=== PATIENT | male | born 1965 | race African-American/Black ===

== ENCOUNTER 2017-02-01 19:15 | Emergency (ER) | payer BC, OTHER ==
[~2017-02-01] VITALS: Ht 185.4 cm; Wt 85.0 kg
[2017-02-01] MEDS ORDERED: BENI40TA3 PO (19:32)
[2017-02-01] MEDS ORDERED: ULTR50TA5 PO (19:32)
[2017-02-01] MEDS ORDERED: BENI40TA7 PO (19:32)
[2017-02-01 19:33] VITALS: BP 115/85; PULSE 107; RESP 20; TEMP 98.1; O2SAT 98
--- NOTE | 2017-02-01 19:44 | PD ---
HPI Chief Complaint: Psychiatric Symptoms Time Seen by Provider: 19:40 Travel History International Travel<30 days: No Contact w/Intl Traveler<30days: No Traveled to known affect area: No History of Present Illness HPI 51-year-old male presents to the emergency Department under a [place] Act by local police. The ballard act states that the patient got upset about a payment plan with magdalena Borre[employer], when he stated that he was going to kill himself. The [employer] called police who contacted the patient. According to the [place], the patient did state this. The patient states that he was arranging a payment plan and the customer service representative teacher asked if he was going to make the pain a. He states that he stated "not if I kill myself". He states he was joking around and did not mean it. 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 He states he has never tried to hurt himself before. He has no depression or anxiety. PFSH Past Medical History Cardiovascular Problems: Yes (htn) Social History Alcohol Use: No Tobacco Use: No Substance Use: No Allergies-Medications (Allergen,Severity, Reaction): Coded Allergies: No Known Allergies (Unverified , 02/01/17) Reported Meds & Prescriptions Reported Meds & Active Scripts Active Reported Ultram (Tramadol HCl) 50 Mg Tab 50 Mg PO Q8H PRN Benicar Hct (Olmesartan-Hydrochlorothiazide) 40-25 mg Tab 1 Tab PO DAILY Review of Systems Except as stated in HPI: all other systems reviewed are Neg Physical Exam Narrative GENERAL: Well-nourished, well-developed male patient, afebrile SKIN: Focused skin assessment warm/dry. HEAD: Normocephalic. Atraumatic. EYES: No scleral icterus. No injection or drainage. NECK: Supple, trachea midline. No JVD or lymphadenopathy. CARDIOVASCULAR: Regular rate and rhythm without murmurs, gallops, or rubs. RESPIRATORY: Breath sounds equal bilaterally. No accessory muscle use. Lungs sounds are clear to auscultation GASTROINTESTINAL: Abdomen soft, non-tender, nondistended. MUSCULOSKELETAL: No cyanosis, or edema. PSYCHIATRIC: No delusional thought processes. No hallucinations. Data Data Last Documented VS Vital Signs Date Time Temp Pulse Resp B/P Pulse Ox O2 Delivery O2 Flow Rate FiO2 6/30/17 19:33 98.1 107 20 115/85 98 Orders Complete Blood Count With Diff (02/01/17 19:40) Comprehensive Metabolic Panel (02/01/17 19:40) Psych Screen (02/01/17 19:40) Drug Screen, Random Urine (02/01/17 19:40) Alcohol (Ethanol) (02/01/17 19:40) Labs Laboratory Tests Test 02/01/17 19:49 White Blood Count 7.9 TH/MM3 Red Blood Count 4.62 MIL/MM3 Hemoglobin 15.0 GM/DL Hematocrit 43.6 % Mean Corpuscular Volume 94.3 FL Mean Corpuscular Hemoglobin 32.4 PG Mean Corpuscular Hemoglobin 34.3 % Concent Red Cell Distribution Width 13.8 % Platelet Count 310 TH/MM3 Mean Platelet Volume 8.0 FL Neutrophils (%) (Auto) 57.2 % Lymphocytes (%) (Auto) 25.2 % Monocytes (%) (Auto) 15.2 % Eosinophils (%) (Auto) 2.0 % Basophils (%) (Auto) 0.4 % Neutrophils # (Auto) 4.5 TH/MM3 Lymphocytes # (Auto) 2.0 TH/MM3 Monocytes # (Auto) 1.2 TH/MM3 Eosinophils # (Auto) 0.2 TH/MM3 Basophils # (Auto) 0.0 TH/MM3 CBC Comment DIFF FINAL Differential Comment Sodium Level 133 MEQ/L Potassium Level 3.5 MEQ/L Chloride Level 98 MEQ/L Carbon Dioxide Level 29.1 MEQ/L Anion Gap 6 MEQ/L Blood Urea Nitrogen 5 MG/DL Creatinine 1.36 MG/DL Estimat Glomerular Filtration 68 ML/MIN Rate Random Glucose 99 MG/DL Calcium Level 9.1 MG/DL Total Bilirubin 0.5 MG/DL Aspartate Amino Transf 62 U/L (AST/SGOT) Alanine Aminotransferase 46 U/L (ALT/SGPT) Alkaline Phosphatase 128 U/L Total Protein 8.2 GM/DL Albumin 3.3 GM/DL Urine Opiates Screen NEG Urine Barbiturates Screen NEG Urine Amphetamines Screen NEG Urine Benzodiazepines Screen NEG Urine Cocaine Screen NEG Urine Cannabinoids Screen NEG Ethyl Alcohol Level 6 MG/DL MDM Medical Decision Making Medical Screen Exam Complete: Yes Emergency Medical Condition: Yes Medical Record Reviewed: Yes Differential Diagnosis Medical clearance versus depression versus anxiety Narrative Course 51-year-old male presents to the emergency department under [place] Act by local police for making suicidal comments to the bank. He states he is not suicidal and denies any depression. CBC, CMP, alcohol level, urine drug screen are ordered and pending. CBC shows no acute abnormality. CMP shows sodium 133, creatinine 1.36. Alcohol level is 6. UDS is negative. Patient is medically cleared for psychiatric screening and disposition. Mental health screening discussed with the patient. Psychiatric screen ordered. Diagnosis Primary Impression: Medical clearance for psychiatric admission Additional Instructions: Patient is medically cleared for psychiatric screening and disposition. Condition: Stable Amaris Smith Feb 01, 2017 19:43
[2017-02-01 20:22] LABS: AMPHETAMINE, URINE NEG (NEG); BARBITURATES, URINE NEG (NEG); COCAINE, URINE NEG (NEG)
[2017-02-01 20:27] LABS: AUTOMATED NEUTROPHIL # 4.5 TH/MM3 (1.8-7.7); BASOPHIL % 0.4 % (0.0-2.0); EOSINOPHIL # 0.2 TH/MM3 (0-0.4); HEMATOCRIT 43.6 % (39.0-51.0); HEMO FLAGS DIFF FINAL; LYMPH % 25.2 % (9.0-44.0); MEAN CELL VOLUME 94.3 FL (80.0-100.0); MEAN CORPUSCULAR HEMOGLOBIN 32.4 PG (27.0-34.0); MEAN CORPUSCULAR HGB CONC 34.3 % (32.0-36.0); MONO % 15.2 % (0.0-8.0); NEUT % 57.2 % (16.0-70.0); PLATELET COUNT 310 TH/MM3 (150-450); RED BLOOD COUNT 4.62 MIL/MM3 (4.50-5.90); RED CELL DISTRIBUTION WIDTH 13.8 % (11.6-17.2); WHITE BLOOD COUNT 7.9 TH/MM3 (4.0-11.0)
[2017-02-01 20:39] LABS: ANION GAP 6 MEQ/L (5-15); AST (GOT) 62 U/L (15-37); BICARBONATE 29.1 MEQ/L (21.0-32.0); BLOOD UREA NITROGEN 5 MG/DL (7-18); CHLORIDE 98 MEQ/L (98-107); GLOMERULAR FILTRATION RATE 68 ML/MIN (>89); POTASSIUM 3.5 MEQ/L (3.5-5.1); SODIUM (NA) 133 MEQ/L (136-145)
[2017-02-01 20:41] LABS: ALT (GPT) 46 U/L (12-78)
[2017-02-01 20:43] LABS: ALKALINE PHOSPHATASE 128 U/L (45-117); TOTAL BILIRUBIN ADULT 0.5 MG/DL (0.2-1.0)
[2017-02-02 02:25] VITALS: BP 105/77; PULSE 98; RESP 18; O2SAT 98
[2017-02-02] MEDS ORDERED: diphenhydrAMINE HCL 25 MG CAP PO ONE (02:30)
[2017-02-02 08:00] VITALS: BP 135/90; PULSE 92; RESP 16; O2SAT 100
[2017-02-02] MEDS ORDERED: ENBR50IN2 SQ (10:29)
[2017-02-02] MEDS ORDERED: HYDROCHLOROTHIAZIDE 25 MG TAB PO ONE (10:45)
[2017-02-02] MEDS ORDERED: LOSARTAN 50 MG TAB PO ONE (10:45)
== END 2017-02-02 11:54 | disposition home or self-care (01) ==
LOC: NEPE 19:15
DX: Z00.8 Encounter for other general examination (principal); Z79.899 Other long term (current) drug therapy
CPT/HCPCS: 80053; 80307; 85025; 99283